=== PATIENT | female | born 2005 | race Caucasian/White ===

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

== ENCOUNTER 2023-01-22 12:27 | Emergency (ER) | payer MEDICAID ==
[~2023-01-22] VITALS: Ht 165.1 cm; Wt 63.5 kg
[2023-01-22 12:30] VITALS: BP_SYST 137; PULSE 82; RESP 20; TEMP 97.8; O2SAT 97
[2023-01-22] MEDS ORDERED: IPRATROPIUM BROM 0.5 MG/2.5 ML VIAL.NEB (ATROVENT) INH ONE (12:45)
[2023-01-22] MEDS ORDERED: predniSONE 20 MG TABLET PO ONE (12:45)
[2023-01-22] MEDS ORDERED: ALBUTEROL SULFATE 0.083% 2.5 MG/3 ML VIAL.NEB INH ONE (12:45)
[2023-01-22 13:06] VITALS: BP_SYST 137
[2023-01-22] MEDS ORDERED: PRED50TA PO (13:26)
[2023-01-22 13:42] LABS: INFLUENZA TYPE A negative (NEGATIVE); INFLUENZA TYPE B NEGATIVE (NEGATIVE)
[2023-01-22 15:35] VITALS: PULSE 72; RESP 18; TEMP 98.3; O2SAT 98
== END 2023-01-22 15:36 | disposition home or self-care (01) ==
LOC: SED 12:27
DX: J45.901 Unspecified asthma with (acute) exacerbation (principal); R05.9 Cough, unspecified; R09.81 Nasal congestion; R06.02 Shortness of breath; Z88.1 Allergy status to other antibiotic agents; Z91.010 Allergy to peanuts; Z79.899 Other long term (current) drug therapy; Z20.822 Contact with and (suspected) exposure to COVID-19
CPT/HCPCS: 36415; 71045; 94640; 99284; 87804 ×2; 87426; J7512; J7613

== ENCOUNTER 2023-06-21 08:19 | Emergency (ER) | payer MEDICAID, OTHER ==
[~2023-06-21] VITALS: Ht 162.6 cm; Wt 63.5 kg
[~2023-06-21 08:19] MED LIST changes: +PRED50TA PO
[2023-06-21 08:26] VITALS: BP_SYST 123; PULSE 117; RESP 20; TEMP 98; O2SAT 98
[2023-06-21] MEDS ORDERED: predniSONE 20 MG TABLET PO ONE (08:30)
[2023-06-21] MEDS ORDERED: IPRATROPIUM BROM 0.5 MG/2.5 ML VIAL.NEB (ATROVENT) INH ONE (08:30)
[2023-06-21] MEDS ORDERED: ALBUTEROL SULFATE 0.083% 2.5 MG/3 ML VIAL.NEB INH ONE (08:30)
[2023-06-21] MEDS ORDERED: PRED20TA PO (09:05)
[2023-06-21] MEDS ORDERED: ALBMDI INH (09:25)
[2023-06-21 17:32] VITALS: BP_SYST 123; PULSE 117; RESP 20; TEMP 98; O2SAT 97
[2023-06-22] MEDS ORDERED: BROM118S61 PO (10:22)
== END 2023-06-21 09:23 | disposition home or self-care (01) ==
LOC: SED 08:19
DX: J45.901 Unspecified asthma with (acute) exacerbation (principal); Z88.1 Allergy status to other antibiotic agents; Z91.010 Allergy to peanuts; Z79.899 Other long term (current) drug therapy
CPT/HCPCS: 99283; 94640; J7512

== ENCOUNTER 2023-06-22 09:23 | Emergency (ER) | payer OTHER ==
[~2023-06-22] VITALS: Ht 157.5 cm; Wt 52.2 kg
[~2023-06-22 09:23] MED LIST changes: +ALBMDI INH
[2023-06-22 09:32] VITALS: BP_SYST 134; PULSE 86; RESP 18; TEMP 97.6; O2SAT 97
[2023-06-22] MEDS ORDERED: BROM118S61 PO (10:22)
[2023-06-22 10:32] VITALS: BP_SYST 114; PULSE 106; RESP 20; TEMP 97; O2SAT 97
== END 2023-06-22 10:33 | disposition home or self-care (01) ==
LOC: SED 09:23
DX: J06.9 Acute upper respiratory infection, unspecified (principal); R05.9 Cough, unspecified; R09.81 Nasal congestion; R07.81 Pleurodynia; J45.909 Unspecified asthma, uncomplicated; Z88.1 Allergy status to other antibiotic agents; Z91.018 Allergy to other foods; Z79.899 Other long term (current) drug therapy
CPT/HCPCS: 71045; 99283

== ENCOUNTER 2023-08-05 14:22 | Emergency (ER) | payer OTHER ==
[~2023-08-05] VITALS: Ht 162.6 cm; Wt 63.5 kg
[~2023-08-05 14:22] MED LIST changes: +BROM118S61 PO
[2023-08-05 14:41] VITALS: BP_SYST 117; PULSE 83; RESP 18; TEMP 98; O2SAT 100
[2023-08-05] MEDS ORDERED: TRIA15CR3 TP (15:33)
[2023-08-05] MEDS ORDERED: OLOP2.5D16 BOTH EYES (15:33)
[2023-08-05 15:38] VITALS: BP_SYST 117; PULSE 83; RESP 18; TEMP 98; O2SAT 100
== END 2023-08-05 15:40 | disposition home or self-care (01) ==
LOC: SED 14:22
DX: L30.0 Nummular dermatitis (principal); H10.10 Acute atopic conjunctivitis, unspecified eye; J45.909 Unspecified asthma, uncomplicated; Z88.1 Allergy status to other antibiotic agents; Z91.010 Allergy to peanuts; Z79.899 Other long term (current) drug therapy
CPT/HCPCS: 99283